=== PATIENT | female | born 1985 | race Caucasian/White ===

== ENCOUNTER → 2023-05-03 | Outpatient (CLI) | payer OTHER ==
[~2023-05-03] MED LIST: ZITHROMAX Z PA250 MG PO
== END ==
LOC: COL.CARD 08:33
DX: R06.02 Shortness of breath (principal)

== ENCOUNTER → 2023-05-08 | Outpatient (CLI) | payer OTHER | LOC: CANPRECLI → COL.PUL 04-26 14:10 | DX: R06.02 Shortness of breath (principal) | CPT/HCPCS: J7674 ==